=== PATIENT | male | born 1990 | race Caucasian/White ===

== ENCOUNTER 2018-05-11 16:53 | Emergency (ER) | payer SELFPAY ==
[2018-05-11 17:22] VITALS: BP 107/73
[2018-05-11] MEDS ORDERED: Tetan/Diph/Pertus SYR(Tdap)* 0.5 ML SYR(BOOSTRIX) use SYR IM ONE (17:56)
[2018-05-11] MEDS ORDERED: Tenofovir/Emtricitab 200/300 * TAB PO ONE (18:01)
[2018-05-11] MEDS ORDERED: Raltegravir* 400 MG TAB PO ONE ×2 (18:03→18:20)
--- NOTE | 2018-05-11 18:27 | UC ---
UC General HPI - HPI Summary HPI Summary: PT HERE FOR THE SUMMER FROM [facility]. GOT OUT OF A CAB LAST NIGHT AND NOTICED THE INSOLE BUFFER HAD SOME BLEEDING WOUNDS ON HIS HANDS. PT STATES HE SHOOK THE DRIVERS HAND BEFORE HE NOTICED THIS AND STATES THAT HE HAD A SIGNIFICANT AMOUNT OF BLOOD ON BOTH HIS PALMS. HE HAS AN ABRASION ON HIS RIGHT PALM. PT CALLED HIS PHYSICIAN IN [facility] AND WAS ADVISED TO GET SEEN FOR PEP. PT IS VERY ANXIOUS. - History of Current Complaint Chief Complaint: UCBodyFluidExposure Stated Complaint: NEEDS TESTING Time Seen by Provider: 05/11/18 17:08 Hx Obtained From: Patient Current Severity: None Pain Intensity: 0 - Allergy/Home Medications Allergies/Adverse Reactions: Allergies Allergy/AdvReac Type Severity Reaction Status Date / Time No Known Allergies Allergy Verified 05/11/18 17:23 Home Medications: Home Medications Diazepam TAB(*) [Valium TAB(*)] 1 mg PO DAILY PRN 05/11/18 [History Confirmed ] PMH/Surg Hx/FS Hx/Imm Hx Previously Healthy: Yes - Surgical History Surgical History: Yes Surgery Procedure, Year, and Place: Lazy eye - Family History Known Family History: Positive: Diabetes - Social History Alcohol Use: Daily Substance Use Type: None Smoking Status (MU): Heavy Every Day Tobacco Smoker Review of Systems Constitutional: Negative Skin: Other - ABRASIONS ON HANDS Respiratory: Negative Cardiovascular: Negative Gastrointestinal: Negative All Other Systems Reviewed And Are Negative: Yes Physical Exam Triage Information Reviewed: Yes Appearance: Well-Appearing, No Pain Distress, Well-Nourished Vital Signs: Initial Vital Signs Temp 99.4 F 05/11/18 17:13 Pulse 103 05/11/18 17:13 Resp 16 05/11/18 17:13 BP 107/73 05/11/18 17:13 Pulse Ox 97 05/11/18 17:13 Vital Signs Reviewed: Yes Eyes: Positive: Conjunctiva Clear ENT: Positive: Hearing grossly normal Neck: Positive: Supple Respiratory Exam: Normal Cardiovascular Exam: Normal Abdomen Description: Positive: Soft Musculoskeletal: Positive: No Edema Neurological: Positive: Alert Psychological: Positive: Age Appropriate Behavior Skin: Positive: Other - SMALL ABRASION RIGHT PALM Course/Dx - Course Course Of Treatment: DISCUSSED WITH PT LOW RISK OF CRISTINA ANY INFECTIOUS DISEASE WITH THIS TYPE OF EXPOSURE BUT THAT GIVEN HIS BLOOD EXPOSURE WAS ON BROKEN SKIN HE QUALIFIES FOR PEP. PT OPTS TO BEGIN TX AND WILL CALL DR. MISHRA TOMORROW FOR F/U APPT. - Differential Dx - Multi-Symptom Provider Diagnoses: BLOOD EXPOSURE ON BROKEN SKIN/PEP Discharge - Sign-Out/Discharge Documenting (check all that apply): Discharge/Admit/Transfer - Discharge Plan Condition: Stable Disposition: HOME Prescriptions: Raltegravir* [Isentress*] 1 tab PO BID #10 tab Patient Education Materials: Postexposure Prophylaxis (ED) Referrals: Steve CERVANTES,Emanuel Onofre [Medical Doctor] - 2 Days Additional Instructions: YOU HAVE BEEN GIVEN 7 DAYS OF MEDICINE FOR POST EXPOSURE PROPHYLAXIS FOR HIV GIVEN YOUR BLOOD EXPOSURE. BLOOD DRAWN TODAY INCLUDES BLOOD COUNT, METABOLIC PANEL AND TESTING FOR HIV, HEPATITIS B AND HEPATITIS C. TETANUS IMMUNIZATION GIVEN (TDAP): You have been given an immunization against tetanus. Please record this in your records. In general, a booster is needed only once every 10 years. The tetanus shot protects against tetanus or "lockjaw," which is a complication of certain wound infections (the tetanus shot cannot protect against the actual infection). The immunization site may become warm and red due to local reaction. If this occurs, apply warm compresses and take aspirin or ibuprofen to reduce inflammation and discomfort. Return for evaluation if the reaction becomes severe. BE AWARE THAT YOUR EXPOSURE CARRIES AN EXTREMELY LOW RISK OF VIRAL TRANSMISSION. CALL DR. MISHRA'S OFFICE FIRST THING TOMORROW MORNING FOR A FOLLOW-UP APPT THIS WEEK TO DISCUSS CONTINUING PEP. YOU WILL NEED TO REPEAT YOUR LAB TESTING ONCE YOU RETURN HOME TO [facility] IN 3 MONTHS. - Billing Disposition and Condition Condition: STABLE Disposition: Home
[2018-05-12 11:09] LABS: ABS Basophils 0.1 10^3/ul (0-0.2); ABS Eosinophils 0.1 10^3/ul (0-0.6); ABS Lymphocytes 1.8 10^3/ul (1.0-4.8); ABS Monocytes 0.8 10^3/ul (0-0.8); ABS Neutrophils 8.3 10^3/ul (1.5-7.7); ABS Nucleated RBC 0 10^3/ul; Eosinophil % 1.2 % (0-6); Hematocrit 46 % (42-52); Hemoglobin 15.6 g/dl (14.0-18.0); Lymphocyte % 16.1 % (25-47); Mean Corpuscular HGB Conc 34 g/dl (31-36); Mean Corpuscular Hemoglobin 33 pg (27-31); Mean Corpuscular Volume 96 fL (80-94); Mean Platelet Volume 8.5 um3 (7.4-10.4); Nucleated Red Blood Cells % 0.1; Platelet Count 248 10^3/ul (150-450); Red Blood Count 4.77 10^6/ul (4.00-5.40); Red Cell Distribution Width 14 % (10.5-15)
[2018-05-12 11:39] LABS: EGFR Non-African American 82.6 (>60)
== END 2018-05-11 18:40 | disposition home or self-care (01) ==
LOC: UCEAST 16:53 → EDBD 16:53 → UCEAST 18:40
DX: Z77.21 Contact with and (suspected) exposure to potentially hazardous body fluids (principal); S60.511A Abrasion of right hand, initial encounter; X58.XXXA Exposure to other specified factors, initial encounter; Y93.9 Activity, unspecified; Y92.9 Unspecified place or not applicable; Z23 Encounter for immunization; F41.9 Anxiety disorder, unspecified; Z11.4 Encounter for screening for human immunodeficiency virus [HIV]; Z83.3 Family history of diabetes mellitus; F17.200 Nicotine dependence, unspecified, uncomplicated
CPT/HCPCS: 36415; 80053; 85025; 86703; 86706; 86803; 87340; 90715; 99203; G0463